=== PATIENT | female | born 1995 | race Caucasian/White ===

== ENCOUNTER 2016-06-05 19:18 | Emergency (ER) | payer OTHER, SELFPAY ==
[~2016-06-05 19:18] MED LIST: ASACOL400 MG; ASACOL400 MG PO; DELTASONE10 MG PO; ENTOCORT EC3 MG; ENTOCORT EC3 MG PO; HEARTBURN MED PO; MICROGESTIN FE PO; MULTI-VITAMIN1 EAC1 PO; MULTIVITAMIN1 TAB; PERCOCET 5-3251 EACH PO; PURINETHOL; REMICADE100 MG; SLOW FE160 MG; SLOW FE47.5 MG PO; TYLENOL W/CODEI1 TAB PO; ZOFRAN4 M2 PO; [UNRECOGNIZED DRUG - REMARK] PO
[2016-06-05] MEDS ORDERED: OMEPRAZOLE40 M2 PO (19:27)
[2016-06-05] MEDS ORDERED: DETROL LA4 M1 PO (19:27)
[2016-06-05 20:07] LABS: BASO % 0.2 % (0-2); EOS % 0.5 % (0-7); EOSINOPHIL ABSOLUTE COUNT 0.1 tho/cmm (0.0-0.7); HCT-HEMATOCRIT 42.5 % (34.0-49.0); HGB-HEMOGLOBIN 14.1 gm/dl (12.0-15.5); IMMATURE GRANULOCYTES ABSOLUTE 0.01 tho/cmm (0-0.03); IMMATURE GRANULOCYTES PERCENT 0.1 % (0-0.3); LYMPH % 12.2 % (20-45); LYMPH ABSOLUTE COUNT 1.1 tho/cmm (0.8-4.5); MCH (MEAN CORPUSCULAR HGB) 29.3 pg (28.0-32.0); MCHC MEAN CORPUSCULAR HGB CONC 33.2 % (32.0-36.0); MCV (MEAN CELL VOLUME) 88.4 fl (82.0-96.0); MEAN PLATELET VOLUME 9.1 cmc (9.4-12.4); MONOCYTE ABSOLUTE COUNT 0.7 tho/cmm (0.0-1.2); NEUTROPHIL ABSOLUTE COUNT 7.3 tho/cmm (1.6-8.0); NEUTROPHIL-AUTOMATED 7.3 tho/cmm (1.6-8.0); PLATELET COUNT 343 tho/cmm (150-450); RED BLOOD COUNT 4.81 mil/cmm (4.00-5.20); WHITE BLOOD COUNT 9.3 tho/cmm (4.0-10.0)
[2016-06-05 20:31] LABS: ALB/GLOB RATIO 0.7 (0.8-2.0); ALBUMIN 3.6 g/dl (3.5-5.0); ALKALINE PHOSPHATASE 80 U/L (33-138); ALT/SGPT 22 U/L (12-78); ANION GAP 14 mmol/L (0-20); AST/SGOT 16 U/L (10-40); BILIRUBIN,TOTAL 0.5 mg/dl (0-1.5); BLOOD UREA NITROGEN 13 mg/dl (6-24); CALCIUM 8.8 mg/dl (8.5-10.5); CARBON DIOXIDE-VENOUS 24 mmol/L (22-32); CHLORIDE 107 mmol/l (96-110); CREATININE 0.86 mg/dl (0.50-1.10); GLUCOSE 80 mg/dL (70-110); POTASSIUM 4.1 mmol/L (3.7-5.1); SODIUM 141 mmol/L (135-145); eGFR VALUE FOR BLACK >90 mL/Min
[2016-06-05 21:01] LABS: URINE BILIRUBIN SMALL (NEG); URINE BLOOD MODERATE (NEG); URINE GLUCOSE (UA) NEGATIVE (NEG); URINE KETONE LARGE (NEG); URINE LEUKOCYTE ESTERASE POSITIVE (NEG); URINE NITRITE NEGATIVE (NEG); URINE PROTEIN SMALL (NEG); URINE SPECIFIC GRAVITY 1.025 (1.003-1.030)
[2016-06-05 21:21] LABS: URINE APPEARANCE HAZY; URINE COLOR YELLOW; URINE EPITHELIAL CELLS 0 /[HPF] (0-10)
[2016-06-05 21:22] LABS: URINE MUCUS 2+
[2016-06-05] MEDS ORDERED: ZOFRAN ODT4 MG PO (23:13)
[2016-06-05] MEDS ORDERED: NORCO 5-325 TA1 EACH PO (23:13)
[2016-10-12] MEDS ORDERED: LEXAPRO20 M2 PO (03:55)
[2016-10-13] MEDS ORDERED: DELTASONE20 MG PO (14:51)
== END 2016-06-05 23:43 ==
LOC: EDMED 19:18
PROVIDERS: Emergency Medicine
DX: K50.90 Crohn's disease, unspecified, without complications (principal)
CPT/HCPCS: J1170; J2405; J2920; J7030